=== PATIENT | female | born 1945 | race Caucasian/White ===

== ENCOUNTER 2020-02-05 12:30 | Outpatient (CLI) | payer MEDICARE, SELFPAY ==
--- NOTE | 2020-02-05 13:00 | NEURO_ITS ---
TEST: ELECTROENCEPHALOGRAM DIAGNOSIS: SEIZURE PATIENT NUMBER: [id number] EEG NUMBER: [id number] RECORDING DATE: 02/05/20 CLINICAL HISTORY: Patient reports she was put on Keppra and has not had a seizure in over 8 years but had an episode 5 months ago where she lost consciousness for a couple of seconds and then was fine. CONDITION OF RECORDING: Awake and drowsy EEG DESCRIPTION: Basic resting occipital frequency consists of moderate amount of fairly well organized low to medium voltage 8-10hz alpha mixed with low voltage 15-18hz beta. During drowsiness low voltage beta activity is seen diffusely mixed with waxing and waning posterior alpha rhythms. Dysrhythmic theta activity is seen over the left temporal linkages only intermittently. Photic stimulation produced normal drive. Nonparoxysmal. Questionably focal and lateralizing. IMPRESSION: Only questionably abnormal record due to the presence of left hemispheric intermittent dysrhythmic theta activity. Clinical correlation recommended. These abnormalities could be suggestive of underlying organic or metabolic encephalopathy or focal insult MTDD
== END 2020-02-05 12:31 | disposition home or self-care (01) ==
PROVIDERS: Visit Provider Psychiatry & Neurology Neurology
DX: R56.9 Unspecified convulsions (principal); R94.01 Abnormal electroencephalogram [EEG]
CPT/HCPCS: 95816

== ENCOUNTER 2020-06-07 14:36 | Outpatient (CLI) | payer MEDICARE, SELFPAY ==
--- NOTE | ~2020-06-07 | MM_ITS ---
EXAMINATION: MM screening [facility] BI w dagoberto HISTORY: Screening mammogram TECHNIQUE: Craniocaudal and mediolateral oblique 3-D tomosynthesis images were obtained and synthetic 2-D images were generated. CAD analysis was submitted and interpreted. COMPARISON: 05/26/2019, 05/06/2018, 04/02/2017 BREAST PARENCHYMAL COMPOSITION: There are scattered areas of fibroglandular density. FINDINGS: There is no evidence of suspicious mass, calcification, or architectural distortion to sugg est malignancy in either breast. There has been no suspicious interval change. IMPRESSION: 1. No mammographic evidence of malignancy. 2. Recommend routine screening mammography in one year. BI-RADS Category 1: Negative Reviewed, dictated and finalized at location A.
== END 2020-06-07 14:37 | disposition home or self-care (01) ==
LOC: ANHIMG 14:39
PROVIDERS: PCP Internal Medicine; Visit Provider Internal Medicine
DX: Z12.31 Encounter for screening mammogram for malignant neoplasm of breast (principal)
CPT/HCPCS: 77063; 77067

== ENCOUNTER 2021-06-29 11:38 | Outpatient (CLI) | payer MEDICARE, SELFPAY ==
--- NOTE | ~2021-06-29 | MM_ITS ---
EXAMINATION: MM screening [facility] w dagoberto HISTORY: Screening mammogram TECHNIQUE: Craniocaudal and mediolateral oblique 3-D tomosynthesis images were obtained and synthetic 2-D images were generated. CAD analysis was submitted and interpreted. COMPARISON: 05/30/2020, 920 , 820 bilateral digital screening mammogram examinations. BREAST PARENCHYMAL COMPOSITION: There are scattered areas of fibroglandular density. FINDINGS: There is no evidence of suspicious mass, calcification, or architectural distortion to sugg est malignancy in either breast. There has been no suspicious interval change. IMPRESSION: 1. No mammographic evidence of malignancy. 2. Recommend routine screening mammography in one year. BI-RADS Category 1: Negative Reviewed, dictated and finalized at location A.
== END 2021-06-29 11:39 | disposition home or self-care (01) ==
PROVIDERS: PCP Internal Medicine; Visit Provider Internal Medicine
DX: Z12.31 Encounter for screening mammogram for malignant neoplasm of breast (principal)
CPT/HCPCS: 77063; 77067